=== PATIENT | male | born 1945 | race African-American/Black ===

== ENCOUNTER 2018-10-24 06:00 | Day surgery (SDC) | payer MEDICARE, BC ==
[~2018-10-24] VITALS: Ht 2067.6 cm; Wt 112.5 kg
[2018-10-24 06:28] LABS: BASOPHILS 0.2 % (0-2); EOSINOPHILS 2.6 % (0-7); HEMATOCRIT 33.6 % (42.0-54.0); HEMOGLOBIN 11.4 g/dL (13.5-17.5); IMMATURE GRANULOCYTES 0.3 % (0-5); LYMPHOCYTES 34.2 % (15-50); MCH 30.9 pg (26.0-34.0); MCHC 33.9 g/dL (31.0-37.0); MCV 91.1 fL (80.0-100.0); MEAN PLATELET VOLUME 11.6 fL (7.4-10.4); MONOCYTES 11.2 % (2-11); NEUTROPHILS 51.5 % (40-80); PLATELET COUNT 172 10x3/uL (130-400); RBC 3.69 10x6/uL (4.20-6.10); RDW 12.4 % (11.5-14.5); WBC 5.8 10x3/uL (4.8-10.8)
[2018-10-24 06:36] LABS: CALCIUM 9.1 mg/dL (8.5-10.1); CARBON DIOXIDE 23.5 mmol/L (21.0-32.0); CREATININE - SERUM 3.3 mg/dL (0.6-1.3); POTASSIUM - SERUM 4.5 mmol/L (3.5-5.1)
[2018-10-24] MEDS ORDERED: ZANAFLEX4 MG PO (06:52)
[2018-10-24] MEDS ORDERED: NORVASC5 MG PO (06:53)
[2018-10-24] MEDS ORDERED: TOPROL XL25 MG PO (06:53)
[2018-10-24] MEDS ORDERED: PLAVIX75 MG PO (06:54)
[2018-10-24] MEDS ORDERED: ISOSORBIDE MONO30 M1 PO (06:55)
[2018-10-24] MEDS ORDERED: LASIX80 MG PO (06:55)
[2018-10-24] MEDS ORDERED: LEVOTHYROXINE112 MCG PO (06:55)
[2018-10-24] MEDS ORDERED: RANEXA500 MG PO (06:55)
[2018-10-24] MEDS ORDERED: COZAAR100 MG PO (06:56)
[2018-10-24] MEDS ORDERED: LIPITOR20 MG PO (06:56)
[2018-10-24] MEDS ORDERED: ROCALTROL0.25 MCG PO (06:57)
[2018-10-24 06:58] LABS: INR 0.95 (0.85-1.17); PROTIME 12.2 SECONDS (11.6-15.0)
[2018-10-24] MEDS ORDERED: GLIMEPIRIDE2 MG PO (07:00)
[2018-10-24] MEDS ORDERED: ASPIRIN81 MG PO (07:01)
[2018-10-24] MEDS ORDERED: NITROSTAT0.4 MG SL (07:01)
[2018-10-24 07:10] VITALS: Ht 2067.6 cm; Wt 112.5 kg
--- NOTE | 2018-10-24 09:08 | NUR ---
PATIENT HAD LEFT ARM BLOCK IN HOLDING AREA PER ANESTHESIA
[2018-10-24] MEDS ORDERED: HYDROCODON-ACE1 EAC7 PO (10:24)
--- NOTE | 2018-10-24 11:38 | NUR ---
1130 RENAL ADA FL DIET SERVED.
--- NOTE | 2018-10-24 14:58 | OP ---
PATIENT NAME: JOSÉ BENOIT MEDICAL RECORD: [id number] :45 LOCATION:[facility] ADMISSION DATE: SURGEON: MATT ANDRE MD DATE OF OPERATION: 10/24/2018 REFERRED BY: José Bolanos MD PREOPERATIVE DIAGNOSIS: Chronic kidney disease, IV. POSTOPERATIVE DIAGNOSIS: Chronic kidney disease, IV. OPERATION PERFORMED: Implantation of an Artegraft prosthetic loop graft in the left forearm between the brachial artery and the cephalic vein. ANESTHESIA: Regional block and MAC per CLIENT CARE MANAGER. PREOPERATIVE NOTE: Mr. Benoit is a very nice 73-year-old patient from [place], [place]. He has severe chronic renal insufficiency and was referred to me for provision of dialysis access. It is anticipated that he has several months or more to go before he will require dialysis and should have time to mature fistula. Under anesthesia in the operating room in supine position, the patient was prepped and draped in sterile manner. A [place] drain was used as a proximal venous tourniquet and nitroglycerin paste was applied to the arm and forearm and I performed a duplex ultrasound examination, which revealed a nice large disease free brachial artery and disappointingly small veins in the forearm and a basilic vein, which was small right around the antecubital space. The cephalic vein was of good caliber in the upper arm and into the upper forearm; however, there was a very little median cubital vein, so when I elected to do a brachiocephalic fistula, this actually required 2 incisions, one more medially over the artery and one laterally to expose the vein. These 2 incisions were made and sites identified with ultrasound. The vein was exposed and dissected from the surrounding structures, controlled with Silastic loops, treated with topical papaverine and hydrostatically dilated with some gentle pressure with proximal occlusion. The brachial artery was exposed and controlled with loops. I chose an Artegraft and it was properly rinsed and prepared for implantation. The graft was bevelled and anastomosed end-to-side to the cephalic vein after the vein was opened and flushed proximally and distally with heparinized saline. The anastomosis performed with running 6-0 Prolene was watertight when tested. A counter incision was made distally over the radius and the graft was pulled through a superficial subcutaneous tunnel to the counterincision and then back to the arterial incision. The graft was shortened and bevelled. The artery was occluded and opened and flushed proximally and distally with heparinized saline and an anastomosis then performed with running 6-0 Prolene. When completed, this anastomosis as well was watertight and under no tension and when the occluding clamps and loops were released, excellent pulsation and palpable thrill and continuous pulsatile Doppler flow was established. There was good Doppler flow in the brachial artery distal to the anastomosis and good high resistance arterial Doppler flow preserved in the ulnar and radial arteries at the wrist. The wounds were then closed with interrupted inverted 3-0 Vicryl and running intracuticular 4-0 Monocryl and Dermabond glue. They were dressed with Maxorb Ag, Tegaderm, and Cavilon skin prep and the patient then awakened and returned to the recovery OPERATIVE REPORT [id number] JOSÉ BENOIT. Blood loss during the operation was about 5 cc. None was replaced. Sponges, instruments, and needles were accounted for. No drain was used and no surgical specimen submitted for histopathology. PLAN: The patient will continue his home medications and diet and activities. He will follow up with me in my office in about 1 week. He is to leave the original operative dressings intact unless they should become too bloody or yucky or wet and they can be changed and the wounds redressed with dry sterile gauze. He is given a prescription for [place] 5/325 mg #10. TRANSINT:[id number] Voice Confirmation ID: [id number] DOCUMENT ID: [id number] MATT ANDRE MD at 1458 CC: JOSÉ BOLANOS MD [id number] DICTATION DATE: 10/24/18 1036 KNOWLEDGE MANAGEMENT CONSULTANT: 10/24/18 1053 REG [facility] [address] [id number]
== END 2018-10-24 13:00 | disposition home or self-care (01) ==
LOC: D.OPS 06:00
PROVIDERS: Surgery; ATTEND Internal Medicine Nephrology
DX: N18.4 Chronic kidney disease, stage 4 (severe) (principal); Z01.812 Encounter for preprocedural laboratory examination

== ENCOUNTER 2018-12-18 21:15 | Inpatient (IN) | payer MEDICARE, BC ==
[~2018-12-18] VITALS: Ht 188 cm; Wt 118.2 kg
[~2018-12-18 21:15] MED LIST: ASPIRIN81 MG PO; COZAAR100 MG PO; GLIMEPIRIDE2 MG PO; HYDROCODON-ACE1 EAC7 PO; ISOSORBIDE MONO30 M1 PO; LASIX80 MG PO; LEVOTHYROXINE112 MCG PO; LIPITOR20 MG PO; NITROSTAT0.4 MG SL; NORVASC5 MG PO; PLAVIX75 MG PO; RANEXA500 MG PO; ROCALTROL0.25 MCG PO; TOPROL XL25 MG PO; ZANAFLEX4 MG PO
[2018-12-19] VITALS (8 sets, daily range): BP systolic 115–174; BP diastolic 41–62; Ht 188 cm; Wt 118.2 kg
--- NOTE | 2018-12-19 00:05 | NUR ---
RECEIVED FROM ER VIA WC. ALERT/ORIENTED X4. AMBULATED WITH SLOW STEADY GAIT TO THE BED. 20G IV IN RT HAND INTACT SL. LEFT ARM FISTULA WITH BRUIT/THRILL NOTED. HAS A CAMPOS DRAINING JAYDEN COLORED URINE TO GRAVITY. A DIME SIZE SORE ON BOTTOM OF RIGHT FOOT UNDER THE TOES NOTED. I PLACED A NON-STICK DRSG AND SECURED WITH PAPER TAPE TO KEEP THE SITE CLEAN. REQUESTED A SANDWICH AND JUICE. ORIENTED TO ROOM AND CALL LIGHT. HIS SON STATED HE WOULD STAY FOR A LITTLE WHILE.
[2018-12-19 06:26] LABS: ALBUMIN 3.1 g/dL (3.4-5.0); ANION GAP 15.4 mmol/L (8-16); BILIRUBIN - TOTAL 0.55 mg/dL (0.2-1.3); CALCIUM 9.1 mg/dL (8.5-10.1); CARBON DIOXIDE 25.2 mmol/L (21.0-32.0); CREATININE - SERUM 3.4 mg/dL (0.6-1.3); POTASSIUM - SERUM 4.6 mmol/L (3.5-5.1); PROTEIN - SERUM 7.7 g/dL (6.4-8.2)
[2018-12-19 06:31] LABS: BASOPHILS 0.1 % (0-2); EOSINOPHILS 0 % (0-7); IMMATURE GRANULOCYTES 0.3 % (0-5); LYMPHOCYTES 5.1 % (15-50); MCH 30.4 pg (26.0-34.0); MCHC 33.3 g/dL (31.0-37.0); MCV 91.2 fL (80.0-100.0); MEAN PLATELET VOLUME 11.5 fL (7.4-10.4); MONOCYTES 6.6 % (2-11); NEUTROPHILS 87.9 % (40-80); PLATELET COUNT 173 10x3/uL (130-400); RBC 3.62 10x6/uL (4.20-6.10); RDW 12.6 % (11.5-14.5); WBC 9.2 10x3/uL (4.8-10.8)
--- NOTE | 2018-12-19 07:35 | NUR ---
ROUNDING DONE WITH PATIENT HAVING TEMP. TYLENOL GIVEN ORDERED. CAMPOS CATH PATENT WITH CLEAR YELLOW URINE. OBESE ABDOMEN. LEFT AVF WITH + BRUIT AND THRILL. NON SKID SOCKS PLACED ON FEET, DRESSING SEEN C/D/I TO BALL OF RIGHT FOOT. GLASSES ON. RIGHT HAND PIV SEEN WITH SALINE LOCK.
[2018-12-19 10:33] LABS: APPEARANCE CLEAR (CLEAR); BILIRUBIN NEGATIVE (NEGATIVE); COLOR YELLOW (YELLOW); GLUCOSE 250 mg/dL (NEGATIVE); KETONE NEGATIVE (NEGATIVE); NITRITE NEGATIVE (NEGATIVE); PROTEIN 1+ mg/dL (NEGATIVE); UROBILINOGEN NORMAL (NORMAL)
[2018-12-19 10:34] LABS: BACTERIA FEW /hpf (NONE SEEN); EPITHELIAL CELLS RARE /hpf (0-5)
--- NOTE | 2018-12-19 10:39 | NUR ---
URINE SENT TO LAB ORDERED USING THE BLUE PORT WITH ASEPTIC TECHNIQUE.
--- NOTE | 2018-12-19 12:49 | NUR ---
BILATERAL SCD'S PLACED ON PATIENT ORDERED. TURNED ON.
--- NOTE | 2018-12-19 16:11 | NUR ---
COMPLETE BATH AND LINEN CHANGE DONE. NEW STATLOCK PLACED.
--- NOTE | 2018-12-19 20:19 | NUR ---
RECIEVED BEDSIDE REPORT. ROUNDS COMPLETED. VSS, AAOX3. R.HAND PIV SALINE LOCK. ROOM AIR, AV FISTULA + BRUIT AND THRILL. GLASSES ON, SCDS ON. DENIES ANY FURTHER NEEDS AT THIS TIME. WILL CTM.
--- NOTE | 2018-12-20 05:09 | NUR ---
FOUND PT PIV IN HIS HAND WHEN I WALKED IN THE ROOM. CATHETER TIP INTACT, NO S/S OF BLEEDING. CLEANED SITE, APPLIED 2X2 GAUZE AND TAPED. RESTARTED A NEW PIV IN RIGHT AC, 20G X1 STICK. PT TOLERATE WELL. PT DENIES ANY FURTHER NEEDS AT THIS TIME. WILL CPOC.
[2018-12-20 06:00] LABS: BASOPHILS 0 % (0-2); EOSINOPHILS 0 % (0-7); HEMATOCRIT 34.5 % (42.0-54.0); HEMOGLOBIN 11.3 g/dL (13.5-17.5); IMMATURE GRANULOCYTES 0.1 % (0-5); LYMPHOCYTES 15.8 % (15-50); MCH 29.9 pg (26.0-34.0); MCHC 32.8 g/dL (31.0-37.0); MCV 91.3 fL (80.0-100.0); MEAN PLATELET VOLUME 11.7 fL (7.4-10.4); MONOCYTES 13.2 % (2-11); NEUTROPHILS 70.9 % (40-80); PLATELET COUNT 156 10x3/uL (130-400); RBC 3.78 10x6/uL (4.20-6.10); RDW 12.4 % (11.5-14.5); WBC 7.3 10x3/uL (4.8-10.8)
[2018-12-20 06:03] LABS: ANION GAP 15.9 mmol/L (8-16); CARBON DIOXIDE 21.2 mmol/L (21.0-32.0); CREATININE - SERUM 3.2 mg/dL (0.6-1.3); PHOSPHOROUS 2.7 mg/dL (2.5-4.9); POTASSIUM - SERUM 4.1 mmol/L (3.5-5.1); VANCOMYCIN - RANDOM 0.1 ug/mL (10.0-20.0)
[2018-12-20 06:16] VITALS: BP 121/48
--- NOTE | 2018-12-20 07:10 | NUR ---
REPORT RECEIVED FROM SENIOR NETWORK ARCHITECT AND PATIENT CARE ASSUMED. PATIENT IS LAYING IN BED AWAKE ALERT AND ORIENTED X 4. PATIENT IS STABLE AND VSS. PATIENT DENIES ANY NEEDS OR PAIN. WILL CONTINUE WITH PLAN OF CARE. SR UP X 2 BED IN LOW POSTION AND CALL LIGHT IN REACH.
[2018-12-20 08:24] VITALS: BP 116/35
[2018-12-20 11:36] VITALS: BP 133/58
--- NOTE | 2018-12-20 13:00 | NUR ---
PATIENT STABLE AND UNCHANGED. WILL CONTINUE TO MONITOR.
[2018-12-20 15:23] VITALS: BP 113/46
[2018-12-20 20:00] VITALS: BP 151/52
--- NOTE | 2018-12-20 20:05 | NUR ---
RESUMING PT CARE. PT IS ALERT LAYING IN BED. NO C/O VOICED. NO S/S OF DISTRESS NOTED. BED IN LOW POSTION WITH CALL LIGHT IN REACH. WILL CONTINUE TO MONITOR PT AND FOLLOW PLAN OF CARE.
[2018-12-21] VITALS: BP 149/69
[2018-12-21 04:00] VITALS: BP 138/76
--- NOTE | 2018-12-21 05:11 | NUR ---
I have reviewed this patient and I concur with the Shift Assessment completed by the Licensed Practical Nurse today this shift.
[2018-12-21 05:52] LABS: BASOPHILS 0.2 % (0-2); EOSINOPHILS 2.3 % (0-7); HEMATOCRIT 33.6 % (42.0-54.0); HEMOGLOBIN 11.1 g/dL (13.5-17.5); IMMATURE GRANULOCYTES 0.2 % (0-5); LYMPHOCYTES 24.1 % (15-50); MCH 29.8 pg (26.0-34.0); MCV 90.3 fL (80.0-100.0); MONOCYTES 18.6 % (2-11); NEUTROPHILS 54.6 % (40-80); PLATELET COUNT 147 10x3/uL (130-400); RBC 3.72 10x6/uL (4.20-6.10); RDW 12.2 % (11.5-14.5)
[2018-12-21 06:10] LABS: WBC 5.3 10x3/uL (4.8-10.8)
[2018-12-21 06:13] LABS: ANION GAP 12.2 mmol/L (8-16); POTASSIUM - SERUM 4.2 mmol/L (3.5-5.1); VANCOMYCIN - RANDOM 7.3 ug/mL (10.0-20.0)
[2018-12-21 06:14] LABS: PHOSPHOROUS 3.4 mg/dL (2.5-4.9)
[2018-12-21 08:00] VITALS: BP 126/61
--- NOTE | 2018-12-21 10:03 | NUR ---
PATIENT COMPLAINS OF PAIN AND SWELLING TO RT MEDIAL PROXIMAL KNEE. PATIENT STATES HAD VEIN TAKEN FROM AREA YEARS AGO. 5 X 5 X 1 CM SOFT TISSUE SWELLING PALPATED THAT IS WARM TO TOUCH. INSTRUCTED PATIENT NOT TO TOUCH OR MASSAGE. SPOKE WITH RAMAKRISHNA CORREIA FOR DR STILL. ORDER RECIEVED FOR ULTRASOUND . AWAITING EXAM. SR UP X 2 BED IN LOW POSTION AND CALL LIGHT IN REACH.
[2018-12-21 12:11] VITALS: BP 135/73
--- NOTE | 2018-12-21 15:45 | NUR ---
PATIENT LAYING IN BED AWAKE, ALERT AND ORIENTED X 4. VSS. PATIENT IS STABLE. PATIENT DENIES ANY NEEDS OR PAIN. WILL CONTINUE WITH PLAN OF CARE. SR UP X 2 BED IN LOW POSITION AND CALL LIGHT IN REACH.
[2018-12-21 16:00] VITALS: BP 134/93
--- NOTE | 2018-12-21 17:58 | NUR ---
PATIENT UNDERGOING ALYCIA AND US TO RT KNEE AREA. VSS. WILL CONTINUE TO MONITOR.
--- NOTE | 2018-12-21 19:58 | NUR ---
RESUMING PT CARE. PT IS ALERT LAYING IN BED. NO C/O VOICED. RESPIRATIONS ARE EVEN AND UNLABORED. NO S/S OF DISTRESS NOTED. BED IN LOW POSITION WITH CALL LIGHT IN REACH. WILL CONTINUE TO MONITOR PT AND FOLLOW PLAN OF CARE.
[2018-12-22] VITALS: BP 130/68
[2018-12-22 04:00] VITALS: BP 121/57
[2018-12-22 05:09] LABS: BASOPHILS 0.2 % (0-2); EOSINOPHILS 2.3 % (0-7); HEMATOCRIT 32.8 % (42.0-54.0); HEMOGLOBIN 10.8 g/dL (13.5-17.5); IMMATURE GRANULOCYTES 0.2 % (0-5); LYMPHOCYTES 26.1 % (15-50); MCH 29.6 pg (26.0-34.0); MCHC 32.9 g/dL (31.0-37.0); MCV 89.9 fL (80.0-100.0); MEAN PLATELET VOLUME 11.1 fL (7.4-10.4); MONOCYTES 13.6 % (2-11); NEUTROPHILS 57.6 % (40-80); PLATELET COUNT 155 10x3/uL (130-400); RBC 3.65 10x6/uL (4.20-6.10); RDW 12.1 % (11.5-14.5)
[2018-12-22 05:31] LABS: ANION GAP 13.4 mmol/L (8-16); CALCIUM 8.9 mg/dL (8.5-10.1); CARBON DIOXIDE 22.8 mmol/L (21.0-32.0); CREATININE - SERUM 2.9 mg/dL (0.6-1.3); PHOSPHOROUS 3.7 mg/dL (2.5-4.9); POTASSIUM - SERUM 4.2 mmol/L (3.5-5.1); VANCOMYCIN - RANDOM 11.5 ug/mL (10.0-20.0)
--- NOTE | 2018-12-22 07:10 | NUR ---
REPORT RECEIVED FROM THERAPEUTIC CONSULTANT AND PATIENT CARE ASSUMED. PATIENT SITTING UP IN BED AWAKE, ALERT AND ORIENTED X 4. VSS AND PATIENT IS STABLE. PATIENT DENIES ANY NEEDS OR PAIN. WILL CONTINUE WITH PLAN OF CARE. SR UP X 2 BED IN LOW POSITION AND CALL LIGHT IN REACH.
[2018-12-22 08:22] VITALS: BP 149/53
--- NOTE | 2018-12-22 09:15 | NUR ---
CAMPOS CATHETER DC'D WITHOUT DIFFICULTY AND PATIENT TOLERATED WELL. ENCOURAGED PATIENT TO CONTINUE TO DRINK FLUIDS AND URINATE OFTEN. PATIENT VERBALIZED UNDERSTANDING. WILL CONTINUE TO MONITOR.
--- NOTE | 2018-12-22 10:11 | NUR ---
Nutrition Follow Up: Renal ADA diet with 75,100,100% intake of meals yesterday Labs: BG 159, BUN 43, Cr 2.9 BM yesterday Pt reports good appetite and no nutritional requests Encouraged a low salt, moderate protein diet at home Discussed protein needs and portion sizes RD following
--- NOTE | 2018-12-22 10:30 | NUR ---
PATIENT HAS URINATED X 2 WITHOUT DIFFICULTY. WILL CONTINUE TO MONITOR.
[2018-12-22 12:12] VITALS: BP 142/60
--- NOTE | 2018-12-22 13:36 | NUR ---
PATIENT LAYING IN BED WITH EYES CLOSED AND BREATHING EVENLY. VSS. PATIENT IS STABLE. WILL CONTINUE TO MONITOR. SR UP X 2 BED IN LOW POSTION. CALL LIGHT IN REACH.
[2018-12-22 16:36] VITALS: BP 129/79
[2018-12-22 20:00] VITALS: BP 150/51
--- NOTE | 2018-12-22 20:30 | NUR ---
RESUMING PT CARE. PT IS ALERT LAYING IN BED. NO C/O VOICED. NO S/S OF DISTRESS NOTED. BED IN LOW POSITION WITH CALL LIGHT IN REACH. SIDE RAILS UP X 2. WILL CONTINUE TO MONITOR PT AND FOLLOW PLAN OF CARE.
[2018-12-23] VITALS: BP 135/42
[2018-12-23 04:00] VITALS: BP 139/56
[2018-12-23 04:55] LABS: BASOPHILS 0.3 % (0-2); EOSINOPHILS 2.6 % (0-7); HEMATOCRIT 31.7 % (42.0-54.0); HEMOGLOBIN 10.5 g/dL (13.5-17.5); IMMATURE GRANULOCYTES 0.7 % (0-5); MCH 29.7 pg (26.0-34.0); MCHC 33.1 g/dL (31.0-37.0); MCV 89.8 fL (80.0-100.0); MEAN PLATELET VOLUME 10.9 fL (7.4-10.4); MONOCYTES 13.1 % (2-11); NEUTROPHILS 55.3 % (40-80); PLATELET COUNT 160 10x3/uL (130-400); RBC 3.53 10x6/uL (4.20-6.10); RDW 12.2 % (11.5-14.5)
[2018-12-23 05:17] LABS: CALCIUM 8.5 mg/dL (8.5-10.1); CARBON DIOXIDE 24.2 mmol/L (21.0-32.0); CREATININE - SERUM 2.7 mg/dL (0.6-1.3); PHOSPHOROUS 3.6 mg/dL (2.5-4.9); POTASSIUM - SERUM 4.2 mmol/L (3.5-5.1)
[2018-12-23 07:51] VITALS: BP 154/52
--- NOTE | 2018-12-23 10:19 | NUR ---
PATIENT IS UP IN SHOWER AND REPORTS THAT HE IS FEELING BETTER AND DENIES ANY OTHER NEEDS.
[2018-12-23 10:50] VITALS: BP 164/64
--- NOTE | 2018-12-23 14:29 | NUR ---
I have reviewed this patient and I concur with the Shift Assessment completed by the Licensed Practical Nurse today this shift.
[2018-12-23 15:16] VITALS: BP 141/57
--- NOTE | 2018-12-23 19:34 | NUR ---
EVENING ROUNDS MADE. PT LAYING IN BED RESTING. A/O X 4. DENIES PAIN AT THIS TIME. R FOREARM IV SL, PATENT, NO REDNESS OR EDEMA NOTED. 3L O2 VIA NC. LUNGS CLEAR. HEART RRR. L AV FISTULA. NO EDEMA NOTED. DENIES FURTHER CONCERNS AT THIS TIME. SAFETY PRECAUTIONS IN PLACE. NON SKIDS SOCKS ON . YELLOW GOWN ON. SR UP X 2. CL IN REACH. BED LOWERED AND LOCKED. WILL CTM.
[2018-12-23 20:13] VITALS: BP 172/55
--- NOTE | 2018-12-23 21:27 | NUR ---
PT TOOK MEDS WITHOUT DIFFICULTY. INSULIN GIVEN TO R ARM. DENIES PAIN AT THIS TIME. FRESH WATER SUPPLIED TO PT. NO FURTHER CONCERNS AT THIS TIME. SAFETY PRECAUTIONS IN PLACE. WILL CTM.
[2018-12-24] VITALS (7 sets, daily range): BP systolic 93–163; BP diastolic 46–75
--- NOTE | 2018-12-24 03:00 | NUR ---
I have reviewed this patient and I concur with the Shift Assessment completed by the Licensed Practical Nurse today this shift.
--- NOTE | 2018-12-24 04:31 | NUR ---
PT RESTING COMFORTABLY AT THIS TIME. BREATHING EVEN AND UNLABORED. NO FURTHER CONCERNS AT THIS TIME. FALL PRECAUTIONS IN PLACE. CL IN REACH. BED LOWERED AND LOCKED. WILL CTM.
[2018-12-24 05:31] LABS: BASOPHILS 0.2 % (0-2); EOSINOPHILS 3.4 % (0-7); HEMATOCRIT 30.5 % (42.0-54.0); HEMOGLOBIN 10.1 g/dL (13.5-17.5); IMMATURE GRANULOCYTES 0.5 % (0-5); LYMPHOCYTES 25.8 % (15-50); MCH 29.7 pg (26.0-34.0); MCHC 33.1 g/dL (31.0-37.0); MCV 89.7 fL (80.0-100.0); MEAN PLATELET VOLUME 11.2 fL (7.4-10.4); MONOCYTES 14.3 % (2-11); NEUTROPHILS 55.8 % (40-80); PLATELET COUNT 179 10x3/uL (130-400); RDW 12.3 % (11.5-14.5); WBC 6.2 10x3/uL (4.8-10.8)
[2018-12-24 05:38] LABS: ANION GAP 12.1 mmol/L (8-16); CALCIUM 8.6 mg/dL (8.5-10.1); CARBON DIOXIDE 23.3 mmol/L (21.0-32.0); CREATININE - SERUM 2.7 mg/dL (0.6-1.3); PHOSPHOROUS 3.5 mg/dL (2.5-4.9); POTASSIUM - SERUM 4.4 mmol/L (3.5-5.1); VANCOMYCIN - RANDOM 15.7 ug/mL (10.0-20.0)
--- NOTE | 2018-12-24 08:08 | NUR ---
AAOX4. ON 3LPM NC, IV TO RIGHT FOREARM, SALINE LOCKED, PATENT, LEFT ARM RESEVED, BRUIT AND THRILL PRESENT, DENIES ANY CURRENT NEEDS OR DISCOMFORTS, ASSISTED TO SITTING UP ON SIDE OF BED SO HE CAN EAT, BED LOWERED AND LOCKED, CALL LIGHT WITHIN REACH. CPOC
--- NOTE | 2018-12-24 13:15 | NUR ---
I have reviewed this patient and I concur with the Shift Assessment completed by the Licensed Practical Nurse today this shift.
--- NOTE | 2018-12-24 15:17 | NUR ---
22 GAUGE IV PLACED TO RIGHT HAND X 1 STICK. GOOD BLOOD RETURN, EASY FLUSH. TAPED, DATED AND SECURED. PATIENT TOLERATED IV PLACEMENT WELL. IV IS SALINE LOCKED. 22 GAUGE IV REMOVED FROM RIGHT FOREARM. CATHETER TIP INTACT. NO BLEEDING TO SITE. PATIENT TOLERATED IV REMOVAL WELL.
--- NOTE | 2018-12-24 15:19 | NUR ---
AAOX4. IV TO RIGHT FOREARM INFILITRATED, IV CATHETER REMOVED, CATHETER TIP INTAKE, IV RESTARTED TO RIGHT HAND, ONE STICK, PLACED, BY GAURAV GARCIA, SALINE LOCKED, BED LOWERED AND LOCKED, CALL LIGHT WITHIN REACH. CPOC
--- NOTE | 2018-12-24 21:03 | NUR ---
ROUNDS COMPLETED. VSS AAOX4. RR EVEN AND UNLABORED. PT RESTING IN BED WITH EYES OPEN. DRESSING TO Lt HEEL C/D/I. DENIES ANY NEED FOR COMFORT CARE. WILL CPOC. CL IN REACH, BED IN LOW.
[2018-12-25 03:25] VITALS: BP 119/64
[2018-12-25 03:58] LABS: BASOPHILS 0.2 % (0-2); EOSINOPHILS 3.9 % (0-7); HEMATOCRIT 29.4 % (42.0-54.0); HEMOGLOBIN 9.6 g/dL (13.5-17.5); IMMATURE GRANULOCYTES 0.5 % (0-5); LYMPHOCYTES 29.3 % (15-50); MCH 29.7 pg (26.0-34.0); MCHC 32.7 g/dL (31.0-37.0); MEAN PLATELET VOLUME 10.4 fL (7.4-10.4); NEUTROPHILS 57.1 % (40-80); PLATELET COUNT 193 10x3/uL (130-400); RBC 3.23 10x6/uL (4.20-6.10); RDW 12.3 % (11.5-14.5); WBC 6.5 10x3/uL (4.8-10.8)
[2018-12-25 04:07] LABS: ANION GAP 14.9 mmol/L (8-16); CALCIUM 8.3 mg/dL (8.5-10.1); CARBON DIOXIDE 22.5 mmol/L (21.0-32.0); CREATININE - SERUM 2.5 mg/dL (0.6-1.3); PHOSPHOROUS 3.5 mg/dL (2.5-4.9); POTASSIUM - SERUM 4.4 mmol/L (3.5-5.1); VANCOMYCIN - RANDOM 10.1 ug/mL (10.0-20.0)
--- NOTE | 2018-12-25 06:54 | NUR ---
PT FSBS 153, PT REFUSE NPH. BUT ACCEPTED TO TAKE HIS HUMULIN. WILL CPOC.
--- NOTE | 2018-12-25 07:45 | NUR ---
AM ROUNDS COMPLETED. INTRODUCED MYSELF TO PT PRIMARY RN FOR TODAYS SHIFT. PT IS A&O SITTING UP IN BED RESTING QUIETLY. INQUIRING ABOUT THE BONE SCAN HE ORDERED DAYS AGO THAT STILL HASNT BEEN PERFORMED, WILL DISCUSS WITH RADIOLOGY AND TRY TO MAKE SURE IT IS DONE TODAY. PT VOICED THANKS AND DENIES ANY CURRENT PAIN OR NEEDS. WAITING ON BREAKFAST, CL IN REACH, BED IN LOWEST, SIDE RAILS X2. WILL CTM.
[2018-12-25 08:01] LABS: % SATURATION 12 % (15-55); IRON 23 ug/dl (35-150); TOTAL IRON BIND CAPACITY 179 ug/dl (260-445); UNSAT IRON BIND CAPACITY 156 ug/dl (150-375)
[2018-12-25 09:00] VITALS: BP 148/55
--- NOTE | 2018-12-25 10:07 | NUR ---
SHIFT ASSESSMENT COMPLETED. DISCUSSED WITH WOUND CARE ABOUT SEEING PT FOR HIS R.FOOT SORE, AT TOP OF METATARSAL. SORE LOOKS LIKE OLD SCAB, WOUND CARE WILL COME SEE. BILAT FEET AND SHINS ARE VERY DRY AND FLAKEY APPLIED MOISTURIZER AND ELEVATED BILAT FEET IN BED. PT VOICED THANKS. EMPTIED URINAL OF 250CC CLEAR YELLOW URINE. PT DENIES ANY CURRENT PAIN OR NEEDS AT THIS TIME. CL IN REACH, BED IN LOWEST, SIDE RAILS X2. WILL CTM.
--- NOTE | 2018-12-25 12:39 | NUR ---
PT SITTING UP IN BEDSIDE CHAIR AND WANTING TO GET INTO SHOWER. ALL SHOWER SUPPLIES PROVIDED AND STUDENT NURSE AT BEDSIDE TO ASSIST INTO SHOWER. SHOWER CHAIR IN SHOWER WELL. NO CURRENT NEEDS. WILL CTM.
--- NOTE | 2018-12-25 16:03 | NUR ---
PT LEAVING ROOM VIA W/C FOR REST OF BONE SCAN. NO CURRENT NEEDS. WILL CTM.
--- NOTE | 2018-12-25 17:04 | NUR ---
PT BACK FROM BONE SCAN AND SITTING UP IN BEDSIDE CHAIR WITH DINNER. PROVIDED PT WITH INSULIN PER SS. PT VOICED THANKS AND DENIES ANY CURRENT PAIN OR NEEDS AT THIS TIME. CL IN REACH. WILL CTM.
--- NOTE | 2018-12-25 17:11 | MORECARE ---
CASE MANAGEMENT DISCHARGE SUMMARY PATIENT: MARYANA BENOIT UNIT: [id number] ADM DATE: 12/18/18 AGE: 73 : 45 SEX: M ROOM/BED: D.2108 AUTHOR: ANALY,DOC PHYSICIAN: REFERRING PHYSICIAN: MARYANA SHER MD DATE OF SERVICE: 12/25/18 Discharge Plan Patient Name: MARYANA BENOIT Facility: [facility]:[place] : 1945 Planned Disposition: Home with Home Health Anticipated Discharge Date: 12/26/18 Discharge Date: Expected LOS: 8 Initial Reviewer: [email or web address] Initial Review Date: 12/18/2018 Generated: 12/25/18 6:11 pm Comments DCP- Discharge Planning Updated by [email or web address]: Sajan Farmer on 12/25/18 3:[address] Patient Name: MARYANA BENOIT Admission Status: ER Accout number: [id number] Admission Date: 12-18-2018 : 1945 Admission Diagnosis:CELLULITIS OF LEFT UPPER LIMB Attending: MARYANA SHER Current LOS: 7 Anticipated DC Date: Planned Disposition: HOME WITH HOME HEALTH Primary Insurance: MEDICARE A & B PLANNED EXTERNAL PROVIDER: [facility], [facility] OFFICE Discharge Planning Comments: CM MET WITH PT IN ROOM TO DISCUSS DISCHARGE PLANNING AND NEEDS. PT REPORTS LIVING AT HOME INDEPENDENTLY AND PT'S SON ALSO LIVES IN THE HOME. PT HAS A CANE THAT HE USES AND A WALKER THAT HE DOES NOT. PT HAS NO MEDICAL EQUIPMENT PROVIDER PREFERENCE. PT HAS NO OUTSIDE SERVICES ASSISTING IN THE HOME. PT HAS A DILAYSIS FISTULA BUT IS NOT CURRENTLY AN OUTPATIENT DIALYSIS PATIENT. CM DISCUSSED AVAILABILITY OF HOME HEALTH, REHAB SERVICES AND MEDICAL EQUIPMENT. PT ASKED IF HE CAN HAVE HOME HEALTH TO ASSIST WITH MEDICATION MANAGEMENT. PT REPORTS HE TOOK HIS MEDICATION TO THE PHARMACY IN [place] FOR HELP AND HE KEEPS GETTING THEM "MESSED UP." CM PROVIDED PT WITH LISTING FOR HOME HEALTH AGENCIES. PT WANTS [facility] OUT OF [facility] HE USED THEM IN THE PAST. CHOICE SIGNED. CM CALLED RENAL NURSE SHANTA, OBTAINED ORDER FOR HOME HEALTH. CM CALLED ELENA OF [facility], [place] OFFICE AT [phone], WHO WILL CONTACT DR. VALLES FOR HOME HEALTH ORDERS, IT MAY BE TOMORROW OR WEDNEDSDAY FOR ADMIT. CM NOTIFIED PT WHO IS IN AGREEMENT WITH PLAN. CM FAXED REFERRAL INFORMATION TO [facility] AT [phone]. PT REPORTS HE WILL CALL SOMEONE TO PICK HIM UP FOR DISCHARGE HOME. IMPORTANT MESSAGE FROM MEDICARE PROVIDED AND EXPLAINED. FOR DISCHARGE, NOTIFY [facility] AT [phone], FAX DISCHARGE INFORMATION TO [facility] AT [phone]. SAJAN FARMER, CASE MANAGEMENT DCPIA - Discharge Planning Initial Assessment Updated by RANDALL: Sajan Farmer on 12/25/18 5:06 pm * Is the patient Alert and Oriented? Yes * How many steps to enter\\exit or inside your home? * [facility] * Pharmacy [facility] IN [place] * Preadmission Environment Home with Family * ADLs Independent * Equipment Cane Walker * Other Equipment NO MEDICAL EQUIPMENT PROVIDER PREFERNECE * List name and contact numbers for known caregivers / representatives who currently or will assist patient after discharge: SABINA CARRASCO, FRIEND, * Verbal permission to speak to the caregivers and representatives has been obtained from the patient. N/A * Community resources currently utilized None * Please name any agencies selected above. NONE * Additional services required to return to the preadmission environment? No * Can the patient safely return to the preadmission environment? Yes * Has this patient been hospitalized within the prior 30 days at any hospital? No [facility]iders [facility] Next Contact Date: 12/25/2018 Service Request Date: Service Type: Resolution: Reviewer: Comments: Coverage Notice Reviewer: [email or web address] Glenroy Farmer Notice Issued Date-Time: 12/25/2018 13:15 Notice Type: Patient Choice Letter Notice Delivered To: Patient Relationship to Patient: Web Merchant Name: Delivery Method: HAND - Hand Delivered Germaine Days: Prior Verbal Notification: Recipient Understood Notice: Yes Recipient Signature: Yes Med Rec Note Co-signed by Attending: Coverage Notice Comment: [facility] OFF[facility] Reviewer: [id number] Glenroy Farmer Notice Issued Date-Time: 12/25/2018 13:15 Notice Type: IM Discharge Notice Notice Delivered To: Patient Relationship to Patient: Web Merchant Name: Delivery Method: HAND - Hand Delivered Germaine Days: Prior Verbal Notification: Recipient Understood Notice: Yes Recipient Signature: Yes Med Rec Note Co-signed by Attending: Coverage Notice Comment: Patient Name: MARYANA BENOIT Page [phone] at 1711 All edits/amendments must be made on the electronic document DICTATION DATE: 12/25/181710 AERIAL HURRICANE HUNTER: KANDY 12/25/181710 RPT#: [id number] DC DATE: STATUS: ADM IN [facility] [address] [place] [address] END OF REPORT
--- NOTE | 2018-12-25 19:45 | NUR ---
RECIEVED BEDSIDE REPORT. ROUNDS COMPLETED. VSS, AA0X4, NO S/S OF RR DISTRESS. PIV ACESS PATENT. PT LEGS BILAT APPEARS DRY/FLAKY. WARM BLANKET PROVIDED PER PT REQUEST. PT DENIES ANY FURTHER NEED FOR COMFORT CARE, WILL CPOC. CL IN REACH, BED IN LOW, SR UP X2.
[2018-12-25 20:00] VITALS: BP 147/63
[2018-12-26] VITALS: BP 157/89
[2018-12-26 04:00] VITALS: BP 121/53
[2018-12-26 06:25] LABS: BASOPHILS 0.2 % (0-2); EOSINOPHILS 3.6 % (0-7); HEMATOCRIT 29.1 % (42.0-54.0); HEMOGLOBIN 9.6 g/dL (13.5-17.5); IMMATURE GRANULOCYTES 0.5 % (0-5); LYMPHOCYTES 31.7 % (15-50); MCH 29.6 pg (26.0-34.0); MCV 89.8 fL (80.0-100.0); MEAN PLATELET VOLUME 10.7 fL (7.4-10.4); MONOCYTES 10.6 % (2-11); NEUTROPHILS 53.4 % (40-80); PLATELET COUNT 221 10x3/uL (130-400); RBC 3.24 10x6/uL (4.20-6.10); WBC 5.8 10x3/uL (4.8-10.8)
--- NOTE | 2018-12-26 06:30 | NUR ---
PT FSBS 134. HELD HUMALOG PER SLIDING SCLAE. NOVOLIN 7UNITS GIVEN @ THIS TIME. WILL CPOC.
[2018-12-26 06:54] LABS: ANION GAP 11.4 mmol/L (8-16); CALCIUM 8.6 mg/dL (8.5-10.1); CREATININE - SERUM 2.5 mg/dL (0.6-1.3); PHOSPHOROUS 3.4 mg/dL (2.5-4.9); POTASSIUM - SERUM 4.4 mmol/L (3.5-5.1)
[2018-12-26 07:47] VITALS: BP 135/56
[2018-12-26 12:11] LABS: FOLATE (FOLIC ACID) - SERUM 10.5 ng/mL (>3.0)
[2018-12-26 12:18] VITALS: BP 168/58
--- NOTE | 2018-12-26 14:18 | NUR ---
Nutrition follow-up: Diet: Renal ADA PO intake 100% of most meals Labs reviewed Wt: 161# RDN following.
--- NOTE | 2018-12-26 19:19 | NUR ---
PATIENT LAYING IN BED. NO COMPLAINTS AT THIS TIME. NO DISTRESS NOTED
[2018-12-26 19:26] VITALS: BP 175/66
[2018-12-26 20:00] VITALS: BP 172/72
--- NOTE | 2018-12-26 23:19 | NUR ---
PATIENT LAYING IN BED. NO COMPLAINTS AT THIS TIME. NO DISTRESS NOTED.
[2018-12-27] VITALS: BP 143/52
--- NOTE | 2018-12-27 01:48 | NUR ---
PATIENT LAYING IN BED. EYES CLOSED, CHEST RISING AND FALLING.
[2018-12-27 04:00] VITALS: BP 128/50
--- NOTE | 2018-12-27 04:34 | NUR ---
PATIENT LAYING IN BED, EYES CLOSED, CHEST RISING AND FALLING. NO DISTRESS NOTED.
[2018-12-27 08:19] LABS: BASOPHILS 0.2 % (0-2); EOSINOPHILS 3.2 % (0-7); HEMOGLOBIN 10.3 g/dL (13.5-17.5); IMMATURE GRANULOCYTES 0.8 % (0-5); LYMPHOCYTES 31.1 % (15-50); MCH 29.9 pg (26.0-34.0); MCHC 33.2 g/dL (31.0-37.0); MCV 90.1 fL (80.0-100.0); MEAN PLATELET VOLUME 10.6 fL (7.4-10.4); MONOCYTES 11.5 % (2-11); NEUTROPHILS 53.2 % (40-80); RBC 3.44 10x6/uL (4.20-6.10); RDW 12.2 % (11.5-14.5); WBC 6.3 10x3/uL (4.8-10.8)
[2018-12-27 08:29] LABS: PLATELET COUNT 266 10x3/uL (130-400)
--- NOTE | 2018-12-27 08:33 | NUR ---
RESUMING PT CARE, PT IS SITTING UP IN CHAIR AT BEDSIDE EATING BREAKFAST, ALERT AND ORIENTED X4, CALL LIGHT IN REACH. WILL CONTINUE TO MONITOR AND FOLLOW PLAN OF CARE.
[2018-12-27 08:36] LABS: ANION GAP 15.9 mmol/L (8-16); CALCIUM 9.2 mg/dL (8.5-10.1); CARBON DIOXIDE 21.8 mmol/L (21.0-32.0); CREATININE - SERUM 2.4 mg/dL (0.6-1.3); PHOSPHOROUS 3.6 mg/dL (2.5-4.9); POTASSIUM - SERUM 4.7 mmol/L (3.5-5.1)
[2018-12-27 09:21] VITALS: BP 125/47
--- NOTE | 2018-12-27 09:51 | NUR ---
I have reviewed this patient and I concur with the Shift Assessment completed by the Licensed Practical Nurse today this shift.
--- NOTE | 2018-12-27 10:38 | EC ---
PATIENT:MARYANA BENOIT DATE OF SERVICE: 12/18/18 SEX: M MEDICAL RECORD: [id number] DATE OF : [birth year] LOCATION:D.M2 D.210 AGE OF PATIENT: 73 ADMISSION DATE: 12/18/18 REFERRING PHYSICIAN: INTERPRETING PHYSICIAN: BRADLEY HOFFMANN MD ECHOCARDIOGRAM REPORT ECHO CHARGES 4 ECHO COMPLETE Date: 12/19/18 CLINICAL DIAGNOSIS: FEVER WITH GRAFT ECHOCARDIOGRAPHIC MEASUREMENTS (adult normal given) AC root (d.<3.7cm) 3.1 cm LV Septum d (<1.2 cm> 1.2 cm Valve Excursion 1.4 cm LV Septum (systole) 1.5 cm Left Atria (s.<4.0cm> 3.8 cm LVPW d(<1.2cm) 1.0 cm RV (d.<2.3cm) 3.1 cm LVPW (sytole) 1.5 cm LV diastole(<5.6CM) 5.9 cm MV E-F(>70mm/sec) cm LV systole 4.6 cm LVOT Diameter 2.0 cm MV exc.(>10mm) cm Est.ejection fraction (50-75%) % DOPPLER: LVIT cm/sec A 102 cm/sec E 92 cm/sec LA cm/sec RVSP 42.3 mmHg LVOT 100 cm/sec AOP1/2T m/s Asc. Ao 150 cm/sec RVOT 62 cm/sec RA cm/sec PA 103 cm/sec AV Gradient Peak 9.0 mmHg AV Mean 5.0 mmHg AV Area 2.2 cm MV Gradient Peak 5.6 mmHg MV Mean 2.5 mmHg MV Area cm COMMENTS: Machine Folder: Inocencio AZEVEDO Round Cutter Operator: 1 Dr. Hoffmann TAPE# PACS Pericardial Effusion N DATE OF SERVICE: 12/19/2018 ECHOCARDIOGRAM DATE OF SERVICE: 12/19/2018 FINDINGS: 1. Left ventricular chamber size is within normal limits. Left ventricular systolic function is normal. Overall ejection fraction estimated at 55%. 2. Left atrium, right atrium, and right ventricle chamber sizes are within ECHOCARDIOGRAM REPORT [id number] MARYANA BENOIT normal limits. 3. Valvular structures have normal structure and motion. 4. Doppler interrogation reveals moderate mitral regurgitation, mild tricuspid regurgitation, no other valvular insufficiency or stenosis, and pulmonary systolic pressure is estimated at 42 mmHg. 5. No evidence of pericardial effusion or left ventricular thrombus. TRANSINT:[id number] Voice Confirmation ID: [id number] DOCUMENT ID: [id number] BRADLEY HOFFMANN MD at 1038 CC: [id number] DICTATION DATE: 12/20/18410 FILTER PULP WASHER: 12/20/18422 ADM IN [facility] [address] [place] [address]
[2018-12-27 12:07] VITALS: BP 158/56
[2018-12-27 15:57] VITALS: BP 184/56
--- NOTE | 2018-12-27 16:02 | MORECARE ---
CASE MANAGEMENT DISCHARGE SUMMARY PATIENT: MARYANA BENOIT UNIT: [id number] ADM DATE: 12/18/18 AGE: 73 : 45 SEX: M ROOM/BED: D.2106 AUTHOR: ANALY,DOC PHYSICIAN: REFERRING PHYSICIAN: MARYANA SHER MD DATE OF SERVICE: 12/27/18 Discharge Plan Patient Name: MARYANA BENOIT Facility: [facility]:[place] : 1945 Planned Disposition: Home with Home Health Anticipated Discharge Date: 12/26/18 Discharge Date: Expected LOS: 8 Initial Reviewer: [id number] Initial Review Date: 12/18/2018 Generated: 12/27/18 5:02 pm Comments DCP- Discharge Planning Updated by [id number]: Sajan Farmer on 12/27/18 3:[address] Patient Name: MARYANA BENOIT Encounter No: [id number] : 1945 Primary Insurance: MEDICARE A & B Anticipated DC Date: 12-26-2018 Planned Disposition: Home with Home Health External Planned Provider: [facility] DCP follow-up note: CM RECEIVED DISCHARGE PLANNING ORDER, MET WITH PT IN ROOM WHO IS IN AGREEMENT WITH DISCHARGE TOMORROW. TRACY ASSISTED WITH CALLING HIS FRIEND, SABINA CARRASCO, WHO WILL JUNIOR ORACLE DBA PT IN THE MORNING AT 1000AM. TRACY NOTIFED ELENA AT [facility] IN [place] OFFICE OF PLANNED DISCHARGE. FOR DISCHARGE, NOTIFY [facility] AT [phone], FAX DISCHARGE INFORMATION TO [facility] AT [phone]. RENUKA BARAJAS DCP- Discharge Planning Updated by [id number]: Sajan Farmer on 12/25/18 3:[address] Patient Name: MARYANA BENOIT Admission Status: ER Accout number: [id number] Admission Date: 12-18-2018 : 1945 Admission Diagnosis:CELLULITIS OF LEFT UPPER LIMB Attending: MARYANA SHER Current LOS: 7 Anticipated DC Date: Planned Disposition: HOME WITH HOME HEALTH Primary Insurance: MEDICARE A & B PLANNED EXTERNAL PROVIDER: [facility] OFFICE Discharge Planning Comments: CM MET WITH PT IN ROOM TO DISCUSS DISCHARGE PLANNING AND NEEDS. PT REPORTS LIVING AT HOME INDEPENDENTLY AND PT'S SON ALSO LIVES IN THE HOME. PT HAS A CANE THAT HE USES AND A WALKER THAT HE DOES NOT. PT HAS NO MEDICAL EQUIPMENT PROVIDER PREFERENCE. PT HAS NO OUTSIDE SERVICES ASSISTING IN THE HOME. PT HAS A DILAYSIS FISTULA BUT IS NOT CURRENTLY AN OUTPATIENT DIALYSIS PATIENT. CM DISCUSSED AVAILABILITY OF HOME HEALTH, REHAB SERVICES AND MEDICAL EQUIPMENT. PT ASKED IF HE CAN HAVE HOME HEALTH TO ASSIST WITH MEDICATION MANAGEMENT. PT REPORTS HE TOOK HIS MEDICATION TO THE PHARMACY IN [place] FOR HELP AND HE KEEPS GETTING THEM "MESSED UP." CM PROVIDED PT WITH LISTING FOR HOME HEALTH AGENCIES. PT WANTS [facility] OUT OF [place] HE USED THEM IN THE PAST. CHOICE SIGNED. CM CALLED RENAL NURSE SHANTA, OBTAINED ORDER FOR HOME HEALTH. CM CALLED ELENA OF [facility], [place] OFFICE AT [phone], WHO WILL CONTACT DR. VALLES FOR HOME HEALTH ORDERS, IT MAY BE TOMORROW OR WEDNEDSDAY FOR ADMIT. CM NOTIFIED PT WHO IS IN AGREEMENT WITH PLAN. CM FAXED REFERRAL INFORMATION TO [facility] AT [phone]. PT REPORTS HE WILL CALL SOMEONE TO PICK HIM UP FOR DISCHARGE HOME. IMPORTANT MESSAGE FROM MEDICARE PROVIDED AND EXPLAINED. FOR DISCHARGE, NOTIFY [facility] AT [phone], FAX DISCHARGE INFORMATION TO [facility] [facility] AT [phone]. SAJAN FARMER, CASE MANAGEMENT DCPIA - Discharge Planning Initial Assessment Updated by [id number]: Sajan Farmer on 12/25/18 5:06 pm * Is the patient Alert and Oriented? Yes * How many steps to enter\\exit or inside your home? * PCP DR. HAGER LOVELADY * Pharmacy [facility] IN [place] * Preadmission Environment Home with Family * ADLs Independent * Equipment Cane Walker * Other Equipment NO MEDICAL EQUIPMENT PROVIDER PREFERNECE * List name and contact numbers for known caregivers / representatives who currently or will assist patient after discharge: SABINA CARRASCO, FRIEND, * Verbal permission to speak to the caregivers and representatives has been obtained from the patient. N/A * Community resources currently utilized None * Please name any agencies selected above. NONE * Additional services required to return to the preadmission environment? No * Can the patient safely return to the preadmission environment? Yes * Has this patient been hospitalized within the prior 30 days at any hospital? No Coverage Notice Reviewer: [id number] Glenroy Farmer Notice Issued Date-Time: 12/25/2018 13:15 Notice Type: Patient Choice Letter Notice Delivered To: Patient Relationship to Patient: Public Address System Installer Name: Delivery Method: HAND - Hand Delivered Germaine Days: Prior Verbal Notification: Recipient Understood Notice: Yes Recipient Signature: Yes Med Rec Note Co-signed by Attending: Coverage Notice Comment: [facility] OFF[facility] Reviewer: [id number] Glenroy Farmer Notice Issued Date-Time: 12/25/2018 13:15 Notice Type: IM Discharge Notice Notice Delivered To: Patient Relationship to Patient: Public Address System Installer Name: Delivery Method: HAND - Hand Delivered Germaine Days: Prior Verbal Notification: Recipient Understood Notice: Yes Recipient Signature: Yes Med Rec Note Co-signed by Attending: Coverage Notice Comment: Last DP export: 12/25/18 4:11 p Patient Name: MARYANA BENOIT Page 24083 at 1602 All edits/amendments must be made on the electronic document DICTATION DATE: 12/27/181601 REFRIGERATOR CRATER: KANDY 12/27/18 160 RPT#: [id number] DC DATE: STATUS: ADM IN [facility] [address] [place] [address] END OF REPORT
--- NOTE | 2018-12-27 19:33 | NUR ---
PATIENT LAYING IN BED. NO COMPLAINTS AT THIS TIME. NO DISTRESS NOTED.
[2018-12-27 20:00] VITALS: BP 135/55
--- NOTE | 2018-12-27 23:00 | NUR ---
PATIENT LAYING IN BED, EYES CLOSED, CHEST RISING AND FALLING. NO DISTRESS NOTED.
--- NOTE | 2018-12-28 03:38 | NUR ---
PATIENT LAYING IN BED, EYES CLOSED, CHEST RISING AND FALLING. NO DISTRESS NOTED.
[2018-12-28 04:00] VITALS: BP 130/50
[2018-12-28 05:11] LABS: BASOPHILS 0.3 % (0-2); HEMATOCRIT 28.5 % (42.0-54.0); HEMOGLOBIN 9.4 g/dL (13.5-17.5); IMMATURE GRANULOCYTES 0.3 % (0-5); LYMPHOCYTES 27.6 % (15-50); MCH 29.6 pg (26.0-34.0); MCV 89.6 fL (80.0-100.0); MEAN PLATELET VOLUME 10.1 fL (7.4-10.4); MONOCYTES 13.4 % (2-11); NEUTROPHILS 55.4 % (40-80); PLATELET COUNT 235 10x3/uL (130-400); RBC 3.18 10x6/uL (4.20-6.10); RDW 12.1 % (11.5-14.5); WBC 6.3 10x3/uL (4.8-10.8)
[2018-12-28 05:33] LABS: ANION GAP 10.5 mmol/L (8-16); CALCIUM 8.6 mg/dL (8.5-10.1); CARBON DIOXIDE 24.1 mmol/L (21.0-32.0); CREATININE - SERUM 2.4 mg/dL (0.6-1.3); PHOSPHOROUS 3.9 mg/dL (2.5-4.9); POTASSIUM - SERUM 4.6 mmol/L (3.5-5.1); VANCOMYCIN - RANDOM 13.4 ug/mL (10.0-20.0)
--- NOTE | 2018-12-28 06:18 | NUR ---
PATIENT LAYING IN BED, EYES CLOSED, CHEST RISING AND FALLING. NO DISTRESS NOTED.
[2018-12-28 08:15] VITALS: BP 147/67
--- NOTE | 2018-12-28 08:25 | NUR ---
RESUMING PT CARE, PT SITTING UP IN CHAIR AT BEDSIDE ALERT AND ORIENTED X4, DENIES NEEDS AT THIS TIME, HE IS TO D/C TO HOME THIS MORNING. CALL LIGHT IN REACH. WILL CONTINUE TO MONITOR.
--- NOTE | 2018-12-28 08:37 | MORECARE ---
CASE MANAGEMENT DISCHARGE SUMMARY PATIENT: MARYANA BENOIT UNIT: [id number] ADM DATE: 12/18/18 AGE: 73 : 45 SEX: M ROOM/BED: D.2106 AUTHOR: ANALY,DOC PHYSICIAN: REFERRING PHYSICIAN: MARYANA SHER MD DATE OF SERVICE: 12/28/18 Discharge Plan Patient Name: MARYANA BENOIT Facility: [facility]:[place] : 1945 Planned Disposition: Home with Home Health Anticipated Discharge Date: 12/28/18 Discharge Date: Expected LOS: 10 Initial Reviewer: [id number] Initial Review Date: 12/18/2018 Generated: 12/28/18 9:37 am Comments DCP- Discharge Planning Updated by [id number]: Sajan Farmer on 12/27/18 3:[address] Patient Name: MARYANA BENOIT Encounter No: [id number] : 1945 Primary Insurance: MEDICARE A & B Anticipated DC Date: 12-26-2018 Planned Disposition: Home with Home Health External Planned Provider: [facility] DCP follow-up note: CM RECEIVED DISCHARGE PLANNING ORDER, MET WITH PT IN ROOM WHO IS IN AGREEMENT WITH DISCHARGE TOMORROW. TRACY ASSISTED WITH CALLING HIS FRIEND, SABINA CARRASCO, WHO WILL TEMPLATE LAYOUT WORKER PT IN THE MORNING AT 1000AM. TRACY NOTIFED ELENA AT [facility] IN [place] OFFICE OF PLANNED DISCHARGE. FOR DISCHARGE, NOTIFY [facility] AT [phone], FAX DISCHARGE INFORMATION TO [facility] AT [phone]. RENUKA BARAJAS DCP- Discharge Planning Updated by [id number]: Sajan Farmer on 12/25/18 3:[address] Patient Name: MARYANA BENOIT Admission Status: ER Accout number: [id number] Admission Date: 12-18-2018 : 1945 Admission Diagnosis:CELLULITIS OF LEFT UPPER LIMB Attending: MARYANA SHER Current LOS: 7 Anticipated DC Date: Planned Disposition: HOME WITH HOME HEALTH Primary Insurance: MEDICARE A & B PLANNED EXTERNAL PROVIDER: [facility] OFFICE Discharge Planning Comments: CM MET WITH PT IN ROOM TO DISCUSS DISCHARGE PLANNING AND NEEDS. PT REPORTS LIVING AT HOME INDEPENDENTLY AND PT'S SON ALSO LIVES IN THE HOME. PT HAS A CANE THAT HE USES AND A WALKER THAT HE DOES NOT. PT HAS NO MEDICAL EQUIPMENT PROVIDER PREFERENCE. PT HAS NO OUTSIDE SERVICES ASSISTING IN THE HOME. PT HAS A DILAYSIS FISTULA BUT IS NOT CURRENTLY AN OUTPATIENT DIALYSIS PATIENT. CM DISCUSSED AVAILABILITY OF HOME HEALTH, REHAB SERVICES AND MEDICAL EQUIPMENT. PT ASKED IF HE CAN HAVE HOME HEALTH TO ASSIST WITH MEDICATION MANAGEMENT. PT REPORTS HE TOOK HIS MEDICATION TO THE PHARMACY IN [place] FOR HELP AND HE KEEPS GETTING THEM "MESSED UP." CM PROVIDED PT WITH LISTING FOR HOME HEALTH AGENCIES. PT WANTS [facility] [employer] OUT OF [place] HE USED THEM IN THE PAST. CHOICE SIGNED. CM CALLED RENAL NURSE SHANTA, OBTAINED ORDER FOR HOME HEALTH. CM CALLED ELENA OF [facility], [place] OFFICE AT [phone], WHO WILL CONTACT DR. VALLES FOR HOME HEALTH ORDERS, IT MAY BE TOMORROW OR WEDNEDSDAY FOR ADMIT. CM NOTIFIED PT WHO IS IN AGREEMENT WITH PLAN. CM FAXED REFERRAL INFORMATION TO [facility] [employer] AT [phone]. PT REPORTS HE WILL CALL SOMEONE TO PICK HIM UP FOR DISCHARGE HOME. IMPORTANT MESSAGE FROM MEDICARE PROVIDED AND EXPLAINED. FOR DISCHARGE, NOTIFY [facility] AT [phone], FAX DISCHARGE INFORMATION TO [facility] [facility] AT [phone]. SAJAN FARMER, CASE MANAGEMENT DCPIA - Discharge Planning Initial Assessment Updated by [id number]: Sajan Farmer on 12/25/18 5:06 pm * Is the patient Alert and Oriented? Yes * How many steps to enter\\exit or inside your home? * PCP DR. HAGER CATTARAUGUS * Pharmacy [facility] IN [place] * Preadmission Environment Home with Family * ADLs Independent * Equipment Cane Walker * Other Equipment NO MEDICAL EQUIPMENT PROVIDER PREFERNECE * List name and contact numbers for known caregivers / representatives who currently or will assist patient after discharge: SABINA CARRASCO, FRIEND, * Verbal permission to speak to the caregivers and representatives has been obtained from the patient. N/A * Community resources currently utilized None * Please name any agencies selected above. NONE * Additional services required to return to the preadmission environment? No * Can the patient safely return to the preadmission environment? Yes * Has this patient been hospitalized within the prior 30 days at any hospital? No Coverage Notice Reviewer: [id number] Farmer Notice Issued Date-Time: 12/25/2018 13:15 Notice Type: Patient Choice Letter Notice Delivered To: Patient Relationship to Patient: Lifestyle Coordinator Name: Delivery Method: HAND - Hand Delivered Germaine Days: Prior Verbal Notification: Recipient Understood Notice: Yes Recipient Signature: Yes Med Rec Note Co-signed by Attending: Coverage Notice Comment: [facility] OFF[facility] Reviewer: [id number] Farmer Notice Issued Date-Time: 12/25/2018 13:15 Notice Type: IM Discharge Notice Notice Delivered To: Patient Relationship to Patient: Lifestyle Coordinator Name: Delivery Method: HAND - Hand Delivered Germaine Days: Prior Verbal Notification: Recipient Understood Notice: Yes Recipient Signature: Yes Med Rec Note Co-signed by Attending: Coverage Notice Comment: Reviewer: RANDALL Farmer Notice Issued Date-Time: 12/28/2018 8:15 Notice Type: IM Discharge Notice Notice Delivered To: Patient Relationship to Patient: Lifestyle Coordinator Name: Delivery Method: HAND - Hand Delivered Germaine Days: Prior Verbal Notification: Recipient Understood Notice: Yes Recipient Signature: Yes Med Rec Note Co-signed by Attending: Coverage Notice Comment: Last DP export: 12/27/18 3:02 pm Patient Name: MARYANA BENOIT Page 32265 at 0837 All edits/amendments must be made on the electronic document DICTATION DATE: 12/28/1836 RN NEW GRAD: KANDY 12/28/18 0836 RPT#: [id number] DC DATE: STATUS: ADM IN [facility] [address] [place] [address] END OF REPORT
--- NOTE | 2018-12-28 09:28 | NUR ---
PER MASOOD/DIRECTOR STATE PHARMACY WITH [facility] VIA PHONE CALL - SHE IS UNABLE TO REVIEW DISCHARGE MEDICATIONS SHE IS SEEING PATIENTS IN CLINIC. STATED SHE WOULD REVIEW IN ABOUT ONE HOUR AND LET ME KNOW WHAT TO DISCHARGE PT HOME ON.
[2018-12-28] MEDS ORDERED: FERROUS SULFAT325 MG PO (09:54)
[2018-12-28] MEDS ORDERED: DOXYCYCLINE HY100 M2 PO (10:09)
--- NOTE | 2018-12-28 11:08 | NUR ---
D/C INSTRUCTIONS GIVEN TO PT, PT DEMONSTRATES USE OF SELF ADMINISTRATION OF INSULIN, GERMAINE REMOVED. TAKEN TO CAR VIA WHEELCHAIR.
--- NOTE | 2018-12-28 11:52 | MORECARE ---
CASE MANAGEMENT DISCHARGE SUMMARY PATIENT: MARYANA BENOIT UNIT: [id number] ADM DATE: 12/18/18 AGE: 73 : 45 SEX: M ROOM/BED: D.2106 AUTHOR: ANALY,DOC PHYSICIAN: REFERRING PHYSICIAN: MARYANA SHER MD DATE OF SERVICE: 12/28/18 Discharge Plan Patient Name: MARYANA BENOIT Facility: [facility]:[place] : 1945 Planned Disposition: Home with Home Health Anticipated Discharge Date: 12/28/18 Discharge Date: 12/28/2018 Expected LOS: 10 Initial Reviewer: [id number] Initial Review Date: 12/18/2018 Generated: 12/28/18 12:51 pm Comments DCP- Discharge Planning Updated by [id number]: Sajan Sibley on 12/28/18 7:[address] Patient Name: MARYANA BENOIT Encounter No: [id number] : 1945 Primary Insurance: MEDICARE A & B Anticipated DC Date: 12-28-2018 Planned Disposition: Home with Home Health External Planned Provider: [facility], [place] OFFICE DCP follow-up note: CM RECEIVED DISCHARGE ORDER, MET WITH PT IN ROOM WHO IS IN AGREEMENT WITH DISCHARGE TODAY, HIS FRIEND IS ON THE WAY TO PICK HIM UP TODAY. IMPORTANT MESSAGE FROM MEDICARE PROVIDED AND EXPLAINED. CM CALLED ELENA OF NOTIFY [facility] AT [phone], PT ON SCHEDULE FOR HOME HEALTH ADMIT TOMOROW. CM FAXED DISCHARGE INFORMATION TO [facility] AT [phone]. RENUKA BARAJAS DCP- Discharge Planning Updated by [id number]: Sajan Sibley on 12/27/18 3:[address] Patient Name: MARYANA BENOIT Encounter No: [id number] : 1945 Primary Insurance: MEDICARE A & B Anticipated DC Date: 12-26-2018 Planned Disposition: Home with Home Health External Planned Provider: [employer] [facility] DCP follow-up note: CM RECEIVED DISCHARGE PLANNING ORDER, MET WITH PT IN ROOM WHO IS IN AGREEMENT WITH DISCHARGE TOMORROW. CM ASSISTED WITH CALLING HIS FRIEND, SABINA CARRASCO, WHO WILL INSECT CONTROL INSPECTOR PT IN THE MORNING AT 1000AM. CM NOTIFED ELENA AT [employer] [facility] IN [place] OFFICE OF PLANNED DISCHARGE. FOR DISCHARGE, NOTIFY [employer] [facility] AT [phone], FAX DISCHARGE INFORMATION TO [facility] AT [phone]. RENUKA BARAJAS DCP- Discharge Planning Updated by [id number]: Sajan Sibley on 12/25/18 3:[address] Patient Name: MARYANA BENOIT Admission Status: ER Accout number: [id number] Admission Date: 12-18-2018 : 1945 Admission Diagnosis:CELLULITIS OF LEFT UPPER LIMB Attending: MARYANA SHER Current LOS: 7 Anticipated DC Date: Planned Disposition: HOME WITH HOME HEALTH Primary Insurance: MEDICARE A & B PLANNED EXTERNAL PROVIDER: [employer] [facility] OFFICE Discharge Planning Comments: CM MET WITH PT IN ROOM TO DISCUSS DISCHARGE PLANNING AND NEEDS. PT REPORTS LIVING AT HOME INDEPENDENTLY AND PT'S SON ALSO LIVES IN THE HOME. PT HAS A CANE THAT HE USES AND A WALKER THAT HE DOES NOT. PT HAS NO MEDICAL EQUIPMENT PROVIDER PREFERENCE. PT HAS NO OUTSIDE SERVICES ASSISTING IN THE HOME. PT HAS A DILAYSIS FISTULA BUT IS NOT CURRENTLY AN OUTPATIENT DIALYSIS PATIENT. CM DISCUSSED AVAILABILITY OF HOME HEALTH, REHAB SERVICES AND MEDICAL EQUIPMENT. PT ASKED IF HE CAN HAVE HOME HEALTH TO ASSIST WITH MEDICATION MANAGEMENT. PT REPORTS HE TOOK HIS MEDICATION TO THE PHARMACY IN [place] FOR HELP AND HE KEEPS GETTING THEM "MESSED UP." CM PROVIDED PT WITH LISTING FOR HOME HEALTH AGENCIES. PT WANTS [facility] OUT OF [place] HE USED THEM IN THE PAST. CHOICE SIGNED. CM CALLED RENAL NURSE SHANTA, OBTAINED ORDER FOR HOME HEALTH. CM CALLED ELENA OF [employer] [facility] [employer] [facility], [place] OFFICE AT [phone], WHO WILL CONTACT DR. VALLES FOR HOME HEALTH ORDERS, IT MAY BE TOMORROW OR WEDNEDSDAY FOR ADMIT. CM NOTIFIED PT WHO IS IN AGREEMENT WITH PLAN. CM FAXED REFERRAL INFORMATION TO [employer] AT [phone]. PT REPORTS HE WILL CALL SOMEONE TO PICK HIM UP FOR DISCHARGE HOME. IMPORTANT MESSAGE FROM MEDICARE PROVIDED AND EXPLAINED. FOR DISCHARGE, NOTIFY [employer] [facility] AT [phone], FAX DISCHARGE INFORMATION TO [facility] AT [phone]. RENUKA BARAJAS DCPIA - Discharge Planning Initial Assessment Updated by [id number]: Sajan Sibley on 12/25/18 5:06 pm * Is the patient Alert and Oriented? Yes * How many steps to enter\\exit or inside your home? * PCP [facility] * Pharmacy [facility] IN [place] * Preadmission Environment Home with Family * ADLs Independent * Equipment Cane Walker * Other Equipment NO MEDICAL EQUIPMENT PROVIDER PREFERNECE * List name and contact numbers for known caregivers / representatives who currently or will assist patient after discharge: SABINA CARRASCO, FRIEND, * Verbal permission to speak to the caregivers and representatives has been obtained from the patient. N/A * Community resources currently utilized None * Please name any agencies selected above. NONE * Additional services required to return to the preadmission environment? No * Can the patient safely return to the preadmission environment? Yes * Has this patient been hospitalized within the prior 30 days at any hospital? No Coverage Notice Reviewer: [id number] Sibley Notice Issued Date-Time: 12/25/2018 13:15 Notice Type: Patient Choice Letter Notice Delivered To: Patient Relationship to Patient: Triple Drum Operator Name: Delivery Method: HAND - Hand Delivered Germaine Days: Prior Verbal Notification: Recipient Understood Notice: Yes Recipient Signature: Yes Med Rec Note Co-signed by Attending: Coverage Notice Comment: [facility] OFFICE Reviewer: [id number] Sibley Notice Issued Date-Time: 12/25/2018 13:15 Notice Type: IM Discharge Notice Notice Delivered To: Patient Relationship to Patient: Triple Drum Operator Name: Delivery Method: HAND - Hand Delivered Germaine Days: Prior Verbal Notification: Recipient Understood Notice: Yes Recipient Signature: Yes Med Rec Note Co-signed by Attending: Coverage Notice Comment: Reviewer: [id number] Sibley Notice Issued Date-Time: 12/28/2018 8:15 Notice Type: IM Discharge Notice Notice Delivered To: Patient Relationship to Patient: Triple Drum Operator Name: Delivery Method: HAND - Hand Delivered Germaine Days: Prior Verbal Notification: Recipient Understood Notice: Yes Recipient Signature: Yes Med Rec Note Co-signed by Attending: Coverage Notice Comment: Last DP export: 12/28/18 7:37 am Patient Name: MARYANA BENOIT Page 58138 at 1152 All edits/amendments must be made on the electronic document DICTATION DATE: 12/28/18 115 PONY EDGER: DM 12/28/18 1151 RPT#: [id number] DC DATE:12/28/18 STATUS: DIS IN [facility] [address] [place] [address] END OF REPORT
--- NOTE | 2018-12-29 06:59 | DS ---
PATIENT:MARYANA PIÑA :[birth year] MEDICAL RECORD: [id number] DISCHARGE SUMMARY ADMISSION DATE: 12/18/18 DISCHARGE DATE: 12/28/18 HISTORY OF PRESENT ILLNESS: Mr. Piña is a very pleasant 73-year-old black male with chronic kidney disease stage III to IV on the basis of diabetes and hypertension followed by me in our [place] office, admitted with fever and cellulitis of his right foot. HOSPITAL COURSE: The patient had an infection of his right metatarsal pad and received a course of Zosyn and vancomycin. His late blood cultures grew a staph in 1 bottle. Echocardiogram revealed no evidence of endocarditis. CT of the foot was nonspecific as were plain films for osteomyelitis. Bone scan was also nonspecific, [facility] who felt that in light of his negative x-rays that the positive blood culture was probably a contaminant and would not receive long-term antibiotics post his hospitalization. He did receive IV iron and will be on oral iron at home for an iron-deficiency anemia. He also received erythropoietin. His insulin dosing was altered during his hospitalization and his blood sugars were better. He will continue with home health as an outpatient. DISCHARGE DIAGNOSES: 1. Cellulitis of right foot, improved. 2. Positive blood culture, possible contaminant without evidence of osteomyelitis. 3. Chronic kidney disease stage III. 4. 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 5. Hypertension. 6. Diabetes mellitus. PLAN: The patient will be discharged today. I will see him in our [place] office in 2 weeks. He will have home health follow his foot ulcer. He will continue his current diabetic diet. DISCHARGE MEDICATIONS: NPH 10 b.i.d.; ferrous sulfate 325 daily; he will have Renvela 0.8 t.i.d.; tramadol p.r.n.; baby aspirin p.r.n.; Humalog before meals and at bedtime on a sliding scale; Synthroid 112 mcg daily; metoprolol 12.5 daily; Lipitor 20 daily; Plavix 75 daily. TRANSINT:[id number] Voice Confirmation ID: [id number] DOCUMENT ID: [id number] MARYANA SHER MD at 0659 CC: [id number] DICTATION DATE: 12/28/18 0746 BRUSH FILLER HAND: 12/28/18 0809 DIS IN 12/28/18 [place] [id number] [place] [address]
== END 2018-12-28 11:09 | disposition home health service (06) | DRG 872 ==
LOC: D.ER 21:15 → D.EDHOLD 21:57 → D.M2 21:57
PROVIDERS: Family Medicine; Internal Medicine Nephrology; ADMIT Internal Medicine Nephrology; ATTEND Internal Medicine Nephrology
DX: A41.9 Sepsis, unspecified organism (principal); N18.4 Chronic kidney disease, stage 4 (severe); L03.115 Cellulitis of right lower limb; E11.22 Type 2 diabetes mellitus with diabetic chronic kidney disease; I12.9 Hypertensive chronic kidney disease with stage 1 through stage 4 chronic kidney disease, or unspecified chronic kidney disease; E03.9 Hypothyroidism, unspecified; E11.621 Type 2 diabetes mellitus with foot ulcer; L97.519 Non-pressure chronic ulcer of other part of right foot with unspecified severity; E11.628 Type 2 diabetes mellitus with other skin complications